=== PATIENT | female | born 1980 | race Caucasian/White ===

== ENCOUNTER 2019-06-25 20:36 | Inpatient (IN) | payer MEDICAID ==
[~2019-06-25] VITALS: Ht 165.1 cm; Wt 69.4 kg
[2019-06-25 21:48] VITALS: BP_SYST 141
--- NOTE | 2019-06-26 00:20 | NUR ---
Pt biba to bed 3 for evaluation
--- NOTE | 2019-06-26 00:22 | NUR ---
ER at bedside examining patient.
--- NOTE | 2019-06-26 00:30 | NUR ---
Pt came to the ED for alcohol intoxication. Reports that pt was found on the floor at [employer]. Reports pt drank a bottle of vodka. Denies n/v/d or fever. Denies chest pain or SOB. No other complaints/injuries noted. Will cont. to monitor.
[2019-06-26] MEDS ORDERED: MAGNESIUM SULFATE 50 ML IV ONE (01:30)
--- NOTE | 2019-06-26 01:50 | NUR ---
PT AMBULATED WITH ASSISTANCE.
--- NOTE | 2019-06-26 01:55 | NUR ---
Pt moved to bed 1
--- NOTE | 2019-06-26 02:11 | NUR ---
Dr. Benito at bedside re-examining pt.
[2019-06-26 02:16] LABS: BILIRUBIN,URINE NEGATIVE (NEGATIVE); BLOOD, URINE 2+ (NEGATIVE); CLARITY/URINE CLEAR (CLEAR); COLOR,URINE YELLOW (YELLOW); GLUCOSE,URINE NEGATIVE (NEGATIVE); KETONES,URINE NEGATIVE (NEGATIVE); LEUKOCYTE ESTERASE ,URINE NEGATIVE (NEGATIVE); NITRITE, URINE POSITIVE (NEGATIVE); PH,URINE 5.5 (5.0-8.0); PROTEIN URINE NEGATIVE (NEGATIVE); UROBILINOGEN,URINE 0.2 (0.2-1.0)
[2019-06-26 02:23] LABS: CALCIUM 8.2 mg/dL (8.4-11.0); CREATININE 0.59 mg/dL (0.55-1.30); POTASSIUM 3.6 mmol/L (3.5-5.1)
--- NOTE | 2019-06-26 02:26 | NUR ---
Flynn ellis, with OK from Dr. Benito.
[2019-06-26 02:28] LABS: BACTERIA,URINE MANY /HPF (None Seen)
[2019-06-26 02:28] LABS: ALBUMIN 3.3 g/dL (3.4-4.8); TOTAL BILIRUBIN 0.4 mg/dL (0.0-1.0)
[2019-06-26 02:30] LABS: BARBITURATE, URINE NEGATIVE (NEG <=200); BENZODIAZEPINE, URINE POSITIVE (NEG <=150); CANNABINOID, URINE NEGATIVE (NEG <=50); COCAINE, URINE NEGATIVE (NEG <=150); METHAMPHETAMINES SCREEN,URINE POSITIVE (NEG <=500); OPIATE, URINE NEGATIVE (NEG <=100); PHENCYCLIDINE SCREEN,URINE NEGATIVE (NEG <=25); UR TRICYCLIC ANTIDEPRESSANTS NEGATIVE (NEG <=300); URINE AMPHETAMINE POSITIVE (NEG <=500); URINE METHADONE NEGATIVE (NEG <=200); URINE OXYCODONE SCREEN NEGATIVE (NEG <=100); URINE PROPOXYPHENE SCREEN NEGATIVE (NEG <=300)
[2019-06-26 02:37] LABS: EOSINOPHILS # (AUTO) 0.1 K/uL (0.0-0.4); EOSINOPHILS % (AUTO) 1.4 % (0.0-4.0); HEMATOCRIT 32.1 % (36-48); HEMOGLOBIN 10.9 g/dL (12.0-16.0); LYMPHOCYTES # (AUTO) 1.8 K/uL (1.0-5.5); LYMPHOCYTES % (AUTO) 43.6 % (20.5-51.5); MEAN CORPUSCULAR HEMOGLOBIN 34 pg (27-31); MEAN CORPUSCULAR HGB CONC 34 % (32-36); MEAN CORPUSCULAR VOLUME 100 fL (79.0-98.0); MONOCYTES # (AUTO) 0.5 K/uL (0.0-1.0); MONOCYTES % (AUTO) 11.3 % (1.7-9.3); NEUTROPHILS # (AUTO) 1.7 K/uL (1.8-7.7); NEUTROPHILS % (AUTO) 42.7 % (40.0-70.0); PLATELET COUNT (AUTO) 187 K/uL (130-430); RED BLOOD CELL COUNT(AUTO) 3.23 MIL/uL (4.2-6.2); RED CELL DISTRIBUTION WIDTH 14.3 % (9.0-15.0)
--- NOTE | 2019-06-26 03:00 | NUR ---
Pt sleeping in bed, no signs of acute distress. Will cont. to monitor.
--- NOTE | 2019-06-26 04:00 | NUR ---
Pt sleeping in bed, no signs of acute distress. Will cont. to monitor.
--- NOTE | 2019-06-26 05:56 | NUR ---
Pt sleeping in bed, no signs of acute distress. Will cont. to monitor.
--- NOTE | 2019-06-26 06:41 | NUR ---
Dr. Benito ordered for pt to be roadtested. However, pt was unable to stand up and walk with steady gait. CN and CLARA GREENE made aware.
[2019-06-26] MEDS ORDERED: NITROFURANTOIN MONOHYD/M-CRYST 100 MG CAPSULE PO ONE (06:45)
--- NOTE | 2019-06-26 06:55 | NUR ---
Lab at bedside for blood draw.
[2019-06-26] MEDS ORDERED: HYDROcodone/ACETAMIN 5-325 MG TAB (NORCO/ VICODIN) PO PRN (08:00)
[2019-06-26] MEDS ORDERED: FOLIC ACID 1 MG, THIAMINE HCL 100 MG, MAGNESIUM SULFATE 1 GM, MVI 10 ML in NACL 0.9% 1,... IV SCH (08:00)
[2019-06-26] MEDS ORDERED: ACETAMINOPHEN 325 MG TABLET PO PRN (08:00)
[2019-06-26] MEDS ORDERED: LORazepam 2 MG/ML VIAL IVP PRN (08:00)
[2019-06-26] MEDS ORDERED: ONDANSETRON HCL 4 MG/2 ML VIAL IVP PRN (08:00)
--- NOTE | 2019-06-26 08:00 | NUR ---
Received orders from Dr. Delatorre.
--- NOTE | 2019-06-26 08:05 | NUR ---
Reconciled meds. Belonging's list done.
--- NOTE | 2019-06-26 08:27 | NUR ---
Patient will be admitted to care of Dr. Delatorre. Admitted to Tele unit. Will go to room 116B. Belongings list completed. Complete and up to date summary report printed. SBAR report given to Marisel at bedside with opportunity for questions.
--- NOTE | 2019-06-26 08:30 | NUR ---
ADMISSION NOTE: Received patient from ER via gurney. Patient admitted with diagnosis of ETOH intoxication. Patient is asleep in bed. Will orient patient to hospital room, call light, toileting, pain management when patient is awake. Personal belongings checked and Belongings List documented. Call light within reach.
--- NOTE | 2019-06-26 08:40 | NUR ---
INITIAL NOTES: RECEIVED PATIENT FROM ER. PATIENT IS ASLEEP LAYING DOWN IN BED. NO SIGNS OF DISTRESS OR SHORTNESS OF BREATH NOTED. PATIENT IS TOLERATING OXYGEN AT ROOM AIR. IV SITE IS PATENT WITH NO SIGNS OF INFILTRATION. PATIENT IN STABLE CONDITION. SAFETY, FALL, ASPIRATION AND SEIZURE PRECAUTIONS ARE IN PLACE. BED LOCKED IN LOWEST POSITION WITH CALL LIGHT IN REACH. WILL CONTINUE TO MONITOR PATIENT FOR ANY CHANGES.
[2019-06-26] MEDS ORDERED: FOLIC ACID 1 MG TABLET PO SCH (09:00)
[2019-06-26] MEDS ORDERED: MULTIVITAMINS TAB 1 TABLET PO SCH (09:00)
[2019-06-26] MEDS ORDERED: THIAMINE HCL 100 MG TABLET PO SCH (09:00)
[2019-06-26 09:16] LABS: PHOSPHORUS 3.9 mg/dL (2.7-4.5); THYROID STIMULATING HORMONE 2.01 uIu/mL (0.36-3.74)
[2019-06-26 09:32] LABS: CHOLESTEROL 196 mg/dL (<200); HDL CHOLESTEROL 105 mg/dL (>55); LDL CHOLESTEROL 85 mg/dL (<100); TRIGLYCERIDES 60 mg/dL (30-150)
[2019-06-26 09:44] LABS: PROTHROMBIN TIME 10.4 SECS (9.5-12.5)
[2019-06-26] MEDS: cefTRIAXone 1 GM IVPB PREMIX 50 ML IV SCH (10:11)
[2019-06-26] MEDS: chlordiazePOXIDE HCL 25 MG CAPSULE PO SCH ×3 (10:11→20:34)
[2019-06-26] MEDS: DOCUSATE SODIUM 100 MG CAPSULE PO SCH ×2 (10:11→20:34)
--- NOTE | 2019-06-26 10:15 | NUR ---
MD ROUNDS: DR. MATHEW MAKING HIS ROUNDS. AWARE OF PATIENT'S CONDITION. NO NEW ORDERS GIVEN AT THIS TIME.
--- NOTE | 2019-06-26 10:20 | NUR ---
RN ROUNDS: PATIENT IS AWAKE AND ALERT x3 LAYING DOWN IN BED. PATIENT DENIES ANY PAIN AT THE MOMENT. PATIENT IS TOLERATING OXYGEN AT ROOM AIR WITH NO SIGNS OF DISTRESS OR SHORTNESS OF BREATH NOTED. PATIENT IN STABLE CONDITION. WILL CONTINUE TO MONITOR PATIENT FOR ANY CHANGES.
[2019-06-26 10:25] VITALS: BP_SYST 139
[2019-06-26] MEDS: FOLIC ACID 1 MG, MVI 10 ML in NACL 0.9% 1,000 ML IV SCH (12:18)
[2019-06-26] MEDS: THIAMINE HCL 100 MG, MAGNESIUM SULFATE 1 GM in NS 100 ML IV SCH (12:19)
[2019-06-26] MEDS: NACL 0.9% 1,000 ML IV SCH ×2 (12:20→17:16)
--- NOTE | 2019-06-26 12:20 | NUR ---
RN ROUNDS: PATIENT IS AWAKE AND ALERT x4 SITTING UP IN BED EATING. PATIENT DENIES ANY PAIN AT THE MOMENT. NO SIGNS OF DISTRESS OR SHORTNESS OF BREATH NOTED. PATIENT IN STABLE CONDITION. WILL CONTINUE TO MONITOR PATIENT FOR ANY CHANGES.
[2019-06-26 12:30] VITALS: BP_SYST 137
--- NOTE | 2019-06-26 14:40 | NUR ---
RN ROUNDS: PATIENT IS AWAKE AND ALERT x4 LAYING DOWN IN BED. PATIENT IS TOLERATING OXYGEN AT ROOM AIR. NO SIGNS OF DISTRESS OR SHORTNESS OF BREATH NOTED. PATIENT IN STABLE CONDITION. WILL CONTINUE TO MONITOR PATIENT FOR ANY CHANGES.
[2019-06-26 16:00] VITALS: BP_SYST 125
--- NOTE | 2019-06-26 16:20 | NUR ---
RN ROUNDS: PATIENT IS ASLEEP IN BED. NO SIGNS OF DISTRESS OR SHORTNESS OF BREATH NOTED. PATIENT IN STABLE CONDITION. WILL CONTINUE TO MONITOR PATIENT FOR ANY CHANGES.
--- NOTE | 2019-06-26 18:50 | NUR ---
CLOSING NOTES: PATIENT IS ASLEEP LAYING DOWN IN BED. NO SIGNS OF DISTRESS OR SHORTNESS OF BREATH NOTED. PATIENT IS TOLERATING OXYGEN AT ROOM AIR. IV SITE IS PATENT WITH NO SIGNS OF INFILTRATION. PATIENT IN STABLE CONDITION. SAFETY, FALL, ASPIRATION AND SEIZURE PRECAUTIONS REMAINED IN PLACE THROUGHOUT THE SHIFT. BED LOCKED IN LOWEST POSITION WITH CALL LIGHT IN REACH. WILL ENDORSE PATIENT CARE TO ONCOMING PROJECT PRODUCT MANAGER NURSE.
--- NOTE | 2019-06-26 19:10 | NUR ---
OPENING NOTES Receive report from morning shift nurse NILESH Joiner. Patient awake, AOx4. No signs of respiratory distress noted, on room air. Denies pain and discomfort at this time. Bed locked and lowest position. Call light within reach, patient educated to use call when assistance is needed, patient verbalized understanding. Safety precautions/Seizure precautions in place. Will continue to monitor patient.
[2019-06-26 20:00] VITALS: BP_SYST 130
--- NOTE | 2019-06-26 20:34 | NUR ---
MED PASS Due medication given at this time. Patient tolerated well. No signs of respiratory distress and discomfort noted. Patient asked for snacks, snacks offered and given. Denies pain and discomfort at this time. Safety precautions in place. Will continue to monitor.
--- NOTE | 2019-06-26 23:45 | NUR ---
RN ROUNDS Patient asleep at this time. No signs of respiratory distress and discomfort noted. Breathing even and unlabored. IVF infusing well, patency noted. Safety precautions and seizure precautions in place Will continue to monitor patient.
[2019-06-27] VITALS: BP_SYST 129
--- NOTE | 2019-06-27 03:10 | NUR ---
RN ROUNDS Patient asleep. No signs of respiratory distress and discomfort noted. Breathing even and unlabored. IVF infusing well, patency noted. Safety precautions and seizure precautions in place. Will continue to monitor patient.
[2019-06-27] MEDS: NACL 0.9% 1,000 ML IV SCH ×2 (05:20→13:00)
--- NOTE | 2019-06-27 06:49 | NUR ---
CLOSING NOTES Patient asleep at this time, No signs of respiratory distress and discomfort noted. Breathing even and unlabored. In room air of 98%. IVF infusing well, patency noted. Call light within reach. Bed locked and lowest position. All needs met throughout the shift. Will continue to monitor until endorsed to oncoming shift nurse.
--- NOTE | 2019-06-27 07:35 | NUR ---
OPENING NOTES: RECEIVED PATIENT FROM CARE MANAGEMENT ASSISTANT NURSE. PATIENT IS ASLEEP LAYING DOWN IN BED. NO SIGNS OF DISTRESS OR SHORTNESS OF BREATH NOTED. PATIENT IS TOLERATING OXYGEN AT ROOM AIR. IV SITE IS PATENT WITH NO SIGNS OF INFILTRATION. PATIENT IN STABLE CONDITION. SAFETY, FALL, ASPIRATION AND SEIZURE PRECAUTIONS ARE IN PLACE. BED LOCKED IN LOWEST POSITION WITH CALL LIGHT IN REACH. WILL CONTINUE TO MONITOR PATIENT FOR ANY CHANGES.
[2019-06-27 08:01] VITALS: BP_SYST 134
[2019-06-27] MEDS: cefTRIAXone 1 GM IVPB PREMIX 50 ML IV SCH (08:41)
[2019-06-27] MEDS: DOCUSATE SODIUM 100 MG CAPSULE PO SCH (08:41)
[2019-06-27] MEDS: chlordiazePOXIDE HCL 25 MG CAPSULE PO SCH ×2 (08:42→14:33)
[2019-06-27 08:54] LABS: BASOPHILS % (AUTO) 0.7 % (0.0-2.0); EOSINOPHILS # (AUTO) 0.1 K/uL (0.0-0.4); EOSINOPHILS % (AUTO) 2.6 % (0.0-4.0); HEMATOCRIT 35.2 % (36-48); LYMPHOCYTES # (AUTO) 1.2 K/uL (1.0-5.5); LYMPHOCYTES % (AUTO) 36.9 % (20.5-51.5); MEAN CORPUSCULAR HEMOGLOBIN 34 pg (27-31); MEAN CORPUSCULAR HGB CONC 34 % (32-36); MEAN CORPUSCULAR VOLUME 101 fL (79.0-98.0); MONOCYTES # (AUTO) 0.3 K/uL (0.0-1.0); MONOCYTES % (AUTO) 9.6 % (1.7-9.3); NEUTROPHILS # (AUTO) 1.7 K/uL (1.8-7.7); NEUTROPHILS % (AUTO) 50.2 % (40.0-70.0); PLATELET COUNT (AUTO) 171 K/uL (130-430); RED CELL DISTRIBUTION WIDTH 14.1 % (9.0-15.0); WHITE BLOOD COUNT (AUTO) 3.3 K/uL (4.8-10.8)
[2019-06-27 08:56] LABS: CREATININE 0.59 mg/dL (0.55-1.30); POTASSIUM 3.8 mmol/L (3.5-5.1)
[2019-06-27] MEDS: THIAMINE HCL 100 MG, MAGNESIUM SULFATE 1 GM in NS 100 ML IV SCH (10:00)
[2019-06-27] MEDS: FOLIC ACID 1 MG, MVI 10 ML in NACL 0.9% 1,000 ML IV SCH (10:00)
--- NOTE | 2019-06-27 10:13 | NUR ---
RN ROUNDS: PATIENT IS AWAKE AND ALERT x4 LAYING DOWN IN BED. NO SIGNS OF DISTRESS OR SHORTNESS OF BREATH NOTED. PATIENT IN STABLE CONDITION. WILL CONTINUE TO MONITOR PATIENT FOR ANY CHANGES.
[2019-06-27 10:19] VITALS: BP_SYST 129
[2019-06-27] MEDS ORDERED: LIB25 PO (10:27)
--- NOTE | 2019-06-27 12:07 | NUR ---
RN ROUNDS: PATIENT IS ASLEEP LAYING DOWN IN BED. NO SIGNS OF DISTRESS OR SHORTNESS OF BREATH NOTED. PATIENT IN STABLE CONDITION. WILL CONTINUE TO MONITOR PATIENT FOR ANY CHANGES.
[2019-06-27 12:30] VITALS: BP_SYST 129
--- NOTE | 2019-06-27 12:45 | NUR ---
DISCHARGE: WHEN ASKING PATIENT WHOM SHOULD I INFORM ABOUT HER DISCHARGE, SHE STATED THAT SHE DOES NOT HAVE HER PHONE AND DOES NOT KNOW ANY ONES NUMBERS. I ASKED HER IF SHE WANTED ME TO CALL HER EMERGENCY CONTACT AND THE PATIENT TOLD ME NOT TO BECAUSE HER PARENTS ARE IN [place]. A TELEPHONE WAS PLACED WITH PATIENT AT BEDSIDE. AWAITING PATIENT TO LET ME KNOW WHO I CAN CONTACT TO COME PICK HER UP BEFORE SHE CAN BE DISCHARGED.
--- NOTE | 2019-06-27 14:05 | NUR ---
RN ROUNDS: PATIENT IS ASLEEP IN BED WITH NO SIGNS OF DISTRESS OR SHORTNESS OF BREATH NOTED. PATIENT IN STABLE CONDITION. WILL CONTINUE TO MONITOR PATIENT FOR ANY CHANGES.
[2019-06-27 16:30] VITALS: BP_SYST 123
--- NOTE | 2019-06-27 16:40 | NUR ---
RN ROUNDS: PATIENT IS AWAKE AND ALERT x4 AND GETTING READY FOR DISCHARGE. NO SIGNS OF DISTRESS OR SHORTNESS OF BREATH NOTED. PATIENT DENIES ANY PAIN AT THE MOMENT. PATIENT IN STABLE CONDITION. WILL CONTINUE TO MONITOR PATIENT FOR ANY CHANGES.
--- NOTE | 2019-06-27 17:10 | NUR ---
D/C Patient: Patient given medication reconciliation form and D/C instructions. Exit Care provided. Patient verbalized understanding. MD discussed with patient the results and treatment provided. Ambulatory with steady gait for discharge to home. Patient in stable condition, ID band removed. IV catheter removed, intact and dressing applied, no active bleeding. Rx of LIBRIUM given. Patient educated on pain management. All belongings sent with patient.
[2019-06-27] MEDS ORDERED: NITR-85 PO (20:11)
== END 2019-06-27 17:12 | disposition home or self-care (01) | DRG 812 ==
LOC: SED 20:36 → STU 06-26 07:41
PROVIDERS: ADMIT Student in an Organized Health Care Education/Training Program; ATTEND Student in an Organized Health Care Education/Training Program
DX: T43.621A Poisoning by amphetamines, accidental (unintentional), initial encounter (principal); G92 Toxic encephalopathy; E44.1 Mild protein-calorie malnutrition; F15.10 Other stimulant abuse, uncomplicated; F10.10 Alcohol abuse, uncomplicated; D50.9 Iron deficiency anemia, unspecified; K74.60 Unspecified cirrhosis of liver; N39.0 Urinary tract infection, site not specified; Y92.89 Other specified places as the place of occurrence of the external cause; Z68.25 Body mass index [BMI] 25.0-25.9, adult; Z79.899 Other long term (current) drug therapy
CPT/HCPCS: 36415; 71045; 80048; 80053; 80061; 80307; 81000-TC; 83036; 83735-TC; 83880; 84100-TC; 84443-TC; 84484; 85025; 85610-TC; 85730-TC; 87086; 87186-TC; 93005; 99285; G0378; G0482; J0696; J3411; J3475; J3490; J7030

== ENCOUNTER 2019-08-16 02:58 | Emergency (ER) | payer MEDICAID ==
[~2019-08-16] VITALS: Ht 182.9 cm; Wt 68.0 kg
[~2019-08-16 02:58] MED LIST: LIB25 PO; NITR-85 PO
[2019-08-16 03:15] VITALS: BP_SYST 134
--- NOTE | 2019-08-16 04:00 | NUR ---
Patient to ER bed 6 to gown for evaluation. Side rails up.
--- NOTE | 2019-08-16 04:36 | NUR ---
Dr. Cedeno bedside for pt eval
--- NOTE | 2019-08-16 04:37 | NUR ---
Pt BIBA to ED needing to be eval'd re: ETOH intoxication, admits to drinking 16 oz Vodka. Claims +urine test done at home. No other complaints and or injuries noted VSS no s/s of acute distress Resting on gurney rails up
--- NOTE | 2019-08-16 05:28 | NUR ---
VSS no s/s of acute distress Resting on gurney rails up
[2019-08-16 05:45] LABS: BILIRUBIN,URINE NEGATIVE (NEGATIVE); BLOOD, URINE NEGATIVE (NEGATIVE); CLARITY/URINE TURBID (CLEAR); COLOR,URINE YELLOW (YELLOW); GLUCOSE,URINE NEGATIVE (NEGATIVE); KETONES,URINE 1+ (NEGATIVE); LEUKOCYTE ESTERASE ,URINE NEGATIVE (NEGATIVE); NITRITE, URINE POSITIVE (NEGATIVE); PROTEIN URINE TRACE (NEGATIVE); UROBILINOGEN,URINE 0.2 (0.2-1.0)
[2019-08-16 06:00] LABS: BENZODIAZEPINE, URINE POSITIVE (NEG <=150); METHAMPHETAMINES SCREEN,URINE POSITIVE (NEG <=500); OPIATE, URINE POSITIVE (NEG <=100); URINE AMPHETAMINE POSITIVE (NEG <=500)
[2019-08-16 06:01] LABS: BARBITURATE, URINE NEGATIVE (NEG <=200); CANNABINOID, URINE NEGATIVE (NEG <=50); COCAINE, URINE NEGATIVE (NEG <=150); PHENCYCLIDINE SCREEN,URINE NEGATIVE (NEG <=25); UR TRICYCLIC ANTIDEPRESSANTS NEGATIVE (NEG <=300); URINE METHADONE NEGATIVE (NEG <=200); URINE OXYCODONE SCREEN NEGATIVE (NEG <=100); URINE PROPOXYPHENE SCREEN NEGATIVE (NEG <=300)
[2019-08-16 06:14] LABS: BACTERIA,URINE MANY /HPF (None Seen); RBC,URINE 0-3 /HPF (0-3)
--- NOTE | 2019-08-16 06:20 | NUR ---
Lab at bedside for blood draw
[2019-08-16 06:40] LABS: BASOPHILS % (AUTO) 0.9 % (0.0-2.0); EOSINOPHILS % (AUTO) 0.6 % (0.0-4.0); HEMATOCRIT 35.5 % (36-48); HEMOGLOBIN 11.9 g/dL (12.0-16.0); LYMPHOCYTES # (AUTO) 1.4 K/uL (1.0-5.5); LYMPHOCYTES % (AUTO) 46.1 % (20.5-51.5); MEAN CORPUSCULAR HEMOGLOBIN 33 pg (27-31); MEAN CORPUSCULAR HGB CONC 34 % (32-36); MEAN CORPUSCULAR VOLUME 98 fL (79.0-98.0); MONOCYTES # (AUTO) 0.3 K/uL (0.0-1.0); MONOCYTES % (AUTO) 10.5 % (1.7-9.3); NEUTROPHILS # (AUTO) 1.3 K/uL (1.8-7.7); NEUTROPHILS % (AUTO) 41.9 % (40.0-70.0); PLATELET COUNT (AUTO) 128 K/uL (130-430); RED BLOOD CELL COUNT(AUTO) 3.61 MIL/uL (4.2-6.2); RED CELL DISTRIBUTION WIDTH 15.8 % (9.0-15.0)
[2019-08-16 06:42] LABS: CALCIUM 8.2 mg/dL (8.4-11.0); CREATININE 0.49 mg/dL (0.55-1.30); POTASSIUM 3.6 mmol/L (3.5-5.1)
[2019-08-16 06:46] LABS: ALBUMIN 3.3 g/dL (3.4-4.8); TOTAL BILIRUBIN 0.6 mg/dL (0.0-1.0)
--- NOTE | 2019-08-16 07:10 | NUR ---
report received from Lele GALLOWAY. Pt is currently sleeping in bed. No signs of distress at the moment
--- NOTE | 2019-08-16 09:18 | NUR ---
Ambulated the pt to the restroom and back into bed. Pt was able to ambulate w/out diffficulty
[2019-08-16 10:22] VITALS: BP_SYST 161
--- NOTE | 2019-08-16 10:23 | NUR ---
Patient given written and verbal discharge instructions and verbalizes understanding. ER MD discussed with patient the results and treatment provided. Patient in stable condition. ID arm band removed. Rx of Bactrim and Librium given. Patient educated on pain management and to follow up with PMD. Pain Scale 0/10. Opportunity for questions provided and answered. Medication side effect fact sheet provided.
== END 2019-08-16 10:22 | disposition home or self-care (01) ==
LOC: SED 02:58
DX: N39.0 Urinary tract infection, site not specified (principal); F19.10 Other psychoactive substance abuse, uncomplicated; R03.0 Elevated blood-pressure reading, without diagnosis of hypertension; Z88.6 Allergy status to analgesic agent
CPT/HCPCS: 36415; 80053; 80307; 81000; 81025; 82140; 85025; 87086; 99283; G0482

== ENCOUNTER 2019-10-29 01:48 | Emergency (ER) | payer MEDICAID ==
[~2019-10-29] VITALS: Ht 182.9 cm; Wt 63.5 kg
[2019-10-29 01:55] VITALS: BP_SYST 135
--- NOTE | 2019-10-29 01:58 | NUR ---
Patient to ER bed 5 to gown for evaluation. Side rails up. Report given to ADA GALLOWAY/LIZZY GALLOWAY.
--- NOTE | 2019-10-29 02:10 | NUR ---
Pt. presents to the ED ambulatory and is A&O x4. She has c/o of anxiety and lower back pain with spotting for 2 weeks. Pt. says that [facility] for tx of a UTI where she recieved ABX in the ED and a presciption for ABX but did not finish taking her prescription. Pt. denies any n/v/d, VSS, and Pt. states that she drank a bottle of vodka today to "take the edge off". Her average is 1-2 bottles of wine per day. Pt. states that she did some cocaine on 10/26 around 5pm.
--- NOTE | 2019-10-29 02:20 | NUR ---
at bedside examining pt.
[2019-10-29 03:12] LABS: BASOPHILS % (AUTO) 0.6 % (0.0-2.0); EOSINOPHILS % (AUTO) 0.1 % (0.0-4.0); HEMATOCRIT 35.3 % (36-48); HEMOGLOBIN 12.1 g/dL (12.0-16.0); LYMPHOCYTES # (AUTO) 1.4 K/uL (1.0-5.5); LYMPHOCYTES % (AUTO) 30.1 % (20.5-51.5); MEAN CORPUSCULAR HEMOGLOBIN 35 pg (27-31); MEAN CORPUSCULAR HGB CONC 34 % (32-36); MEAN CORPUSCULAR VOLUME 102 fL (79.0-98.0); MONOCYTES # (AUTO) 0.6 K/uL (0.0-1.0); MONOCYTES % (AUTO) 12.9 % (1.7-9.3); NEUTROPHILS # (AUTO) 2.7 K/uL (1.8-7.7); NEUTROPHILS % (AUTO) 56.3 % (40.0-70.0); PLATELET COUNT (AUTO) 158 K/uL (130-430); RED BLOOD CELL COUNT(AUTO) 3.48 MIL/uL (4.2-6.2); RED CELL DISTRIBUTION WIDTH 12.8 % (9.0-15.0); WHITE BLOOD COUNT (AUTO) 4.8 K/uL (4.8-10.8)
[2019-10-29 03:25] LABS: CALCIUM 8.6 mg/dL (8.4-11.0); CREATININE 0.84 mg/dL (0.55-1.30); POTASSIUM 3.6 mmol/L (3.5-5.1)
--- NOTE | 2019-10-29 03:27 | NUR ---
report given to NILESH Shahid
--- NOTE | 2019-10-29 03:28 | NUR ---
Patient states she is still feeling anxious. Vital signs stable. Will continue to monitor.
[2019-10-29 03:40] LABS: ALBUMIN 3.7 g/dL (3.4-4.8); THYROID STIMULATING HORMONE 3.91 uIu/mL (0.36-3.74); TOTAL BILIRUBIN 0.7 mg/dL (0.0-1.0)
[2019-10-29] MEDS ORDERED: chlordiazePOXIDE HCL 25 MG CAPSULE PO ONE (04:00)
--- NOTE | 2019-10-29 04:00 | NUR ---
patient walked with steady gait to the restroom to give a urine sample.
[2019-10-29 04:44] VITALS: BP_SYST 146
--- NOTE | 2019-10-29 04:44 | NUR ---
Patient given written and verbal discharge instructions and verbalizes understanding. ER MD discussed with patient the results and treatment provided. Patient in stable condition. ID arm band removed. No Rx given. Patient educated on pain management and to follow up with PMD. Pain Scale 0/10. Opportunity for questions provided and answered. Medication side effect fact sheet provided.
== END 2019-10-29 04:44 | disposition home or self-care (01) ==
LOC: SED 01:48
DX: F41.9 Anxiety disorder, unspecified (principal); R00.2 Palpitations; F22 Delusional disorders; I10 Essential (primary) hypertension; F10.10 Alcohol abuse, uncomplicated
CPT/HCPCS: 36415; 80053; 81002; 81025; 84439; 84443-TC; 85025; 99283

== ENCOUNTER 2020-03-11 00:29 | Emergency (ER) | payer MEDICAID ==
[~2020-03-11] VITALS: Ht 182.9 cm; Wt 65.8 kg
[2020-03-11 00:30] VITALS: BP_SYST 115
[2020-03-11] MEDS ORDERED: NACL 0.9% 1,000 ML IV ONE ×3 (00:54→10:15)
[2020-03-11 01:20] LABS: BARBITURATE, URINE NEGATIVE (NEG <=200); BENZODIAZEPINE, URINE POSITIVE (NEG <=150); CANNABINOID, URINE NEGATIVE (NEG <=50); COCAINE, URINE NEGATIVE (NEG <=150); METHAMPHETAMINES SCREEN,URINE POSITIVE (NEG <=500); OPIATE, URINE NEGATIVE (NEG <=100); PHENCYCLIDINE SCREEN,URINE NEGATIVE (NEG <=25); UR TRICYCLIC ANTIDEPRESSANTS NEGATIVE (NEG <=300); URINE AMPHETAMINE POSITIVE (NEG <=500); URINE METHADONE NEGATIVE (NEG <=200); URINE OXYCODONE SCREEN NEGATIVE (NEG <=100); URINE PROPOXYPHENE SCREEN NEGATIVE (NEG <=300)
[2020-03-11 01:21] LABS: BASOPHILS # (AUTO) 0.1 K/uL (0.0-0.2); BASOPHILS % (AUTO) 1.3 % (0.0-2.0); EOSINOPHILS % (AUTO) 1.2 % (0.0-4.0); HEMATOCRIT 32.1 % (36-48); LYMPHOCYTES # (AUTO) 1.6 K/uL (1.0-5.5); LYMPHOCYTES % (AUTO) 40.5 % (20.5-51.5); MEAN CORPUSCULAR HEMOGLOBIN 36 pg (27-31); MEAN CORPUSCULAR HGB CONC 34 % (32-36); MEAN CORPUSCULAR VOLUME 104 fL (79.0-98.0); MONOCYTES # (AUTO) 0.7 K/uL (0.0-1.0); MONOCYTES % (AUTO) 18.1 % (1.7-9.3); NEUTROPHILS # (AUTO) 1.6 K/uL (1.8-7.7); NEUTROPHILS % (AUTO) 38.9 % (40.0-70.0); PLATELET COUNT (AUTO) 163 K/uL (130-430); RED BLOOD CELL COUNT(AUTO) 3.09 MIL/uL (4.2-6.2); RED CELL DISTRIBUTION WIDTH 12.2 % (9.0-15.0)
[2020-03-11 01:30] LABS: CALCIUM 8.6 mg/dL (8.4-11.0); CREATININE 0.65 mg/dL (0.55-1.30); POTASSIUM 3.5 mmol/L (3.5-5.1)
[2020-03-11] MEDS ORDERED: LORazepam 2 MG/ML VIAL IVP ONE (01:30)
[2020-03-11] MEDS ORDERED: DIPHENHYDRAMINE INJ 50 MG/ML VIAL IVP ONE (01:30)
[2020-03-11 01:36] LABS: ALBUMIN 3.6 g/dL (3.4-4.8); TOTAL BILIRUBIN 0.7 mg/dL (0.0-1.0)
[2020-03-11 14:02] VITALS: BP_SYST 110
== END 2020-03-11 14:02 | disposition home or self-care (01) ==
LOC: SED 00:29
DX: F10.129 Alcohol abuse with intoxication, unspecified (principal); F15.129 Other stimulant abuse with intoxication, unspecified; F17.210 Nicotine dependence, cigarettes, uncomplicated; Z88.6 Allergy status to analgesic agent
CPT/HCPCS: 36415; 80053; 80307; 83690; 85025; 96361; 96374; 96375; 99284; G0482; J1200; J2060; J7030

== ENCOUNTER 2020-05-27 20:41 | Emergency (ER) | payer MEDICAID, SELFPAY ==
[~2020-05-27] VITALS: Ht 182.9 cm; Wt 65.8 kg
[2020-05-27 21:03] VITALS: BP_SYST 114
--- NOTE | 2020-05-27 21:56 | NUR ---
CLARA Hargrove at TENT examining patient.
[2020-05-27] MEDS ORDERED: levalbuterol HCL 0.63 MG/3 ML VIAL.NEB INH ONE (22:15)
--- NOTE | 2020-05-27 22:50 | NUR ---
Placed in room 8 . Placed on client support professional, blood pressure machine and pulse oximeter. To gown for exam. Side rails up.
--- NOTE | 2020-05-27 22:50 | NUR ---
Pt biba for etoh x today. Pt was walking in [employer] w/ unsteady gait, staff called 911. Pt has no complaints at this time. Pt stated she tested positive for COVID 19. Allergic to ketoralac. Pt able to speak full sentence. Denies cough, sob and CP.
[2020-05-27 23:32] LABS: BILIRUBIN,URINE 1+ (NEGATIVE); BLOOD, URINE NEGATIVE (NEGATIVE); CLARITY/URINE CLEAR (CLEAR); COLOR,URINE YELLOW (YELLOW); GLUCOSE,URINE NEGATIVE (NEGATIVE); KETONES,URINE TRACE (NEGATIVE); LEUKOCYTE ESTERASE ,URINE NEGATIVE (NEGATIVE); NITRITE, URINE NEGATIVE (NEGATIVE); PROTEIN URINE TRACE (NEGATIVE)
[2020-05-28] MEDS ORDERED: HYDROcodone/ACETAMIN 5-325 MG TAB (NORCO/ VICODIN) PO ONE (00:15)
[2020-05-28 00:27] VITALS: BP_SYST 114
--- NOTE | 2020-05-28 00:27 | NUR ---
Patient given written and verbal discharge instructions and verbalizes understanding. ER MD discussed with patient the results and treatment provided. Patient in stable condition. ID arm band removed. Rx of robaxin and ibuprofen given. Patient educated on pain management and to follow up with PMD. Opportunity for questions provided and answered. Medication side effect fact sheet provided.
== END 2020-05-28 00:27 | disposition home or self-care (01) ==
LOC: SED 20:41
DX: R07.89 Other chest pain (principal); J02.9 Acute pharyngitis, unspecified; F12.90 Cannabis use, unspecified, uncomplicated; F15.90 Other stimulant use, unspecified, uncomplicated; F17.210 Nicotine dependence, cigarettes, uncomplicated; Z88.6 Allergy status to analgesic agent
CPT/HCPCS: 81003; 81025; 99283; J7614